=== PATIENT | male | born 1995 | race Caucasian/White ===

== ENCOUNTER 2017-11-20 09:16 | Emergency (ER) | payer OTHER ==
--- NOTE | 2017-11-20 10:33 | ED Physician Documentation ---
History of Present Illness - Stated complaint Stated Complaint: BACK PX - Chief complaint Chief Complaint: Back Pain - Additonal information Additional information: hx from pt 21 male [place] lifts boxes at work woke up with mid left back pain worse with moving no fever no recent surgery dental work no CP SOA cough no abd pain NV no dysuria hematuria incont no saddle anesthesia when he work up with his arm over his head he had L arm numbness for about 2 min now resolved Review of Systems Constitutional: denies: Fever, Chills Cardiac: denies: Chest pain / pressure Respiratory: denies: Dyspnea GI: denies: Abdominal Pain : denies: Dysuria, Frequency, Hematuria Musculoskeletal: reports: Back pain Neurologic: reports: Numbness (L arm not now). denies: Focal weakness Endocrine: denies: Easy bruising / bleeding Immunocompromised: denies: Immunocompromised PD PAST MEDICAL HISTORY - Present Medications Home Medications: Ambulatory Orders Medication Instructions Recorded Confirmed Cyclobenzaprine [Flexeril] 10 mg PO TID PRN #20 tablet 11/20/17 Ibuprofen [Motrin] 400 mg PO Q6H PRN #30 tablet 11/20/17 Lidocaine Patch 5% [Lidoderm Patch] 1 each TOP DAILY PRN #10 patch 11/20/17 - Allergies Allergies/Adverse Reactions: Allergies Allergy/AdvReac Type Severity Reaction Status Date / Time No Known Drug Allergies Allergy Verified 11/20/17 09:30 PD ED PE NORMAL - Vitals Vital signs reviewed: Yes - General General: Alert and oriented X 3 - Cardiac Cardiac: RRR - Respiratory Respiratory: No respiratory distress - Abdomen Abdomen: Soft, Non tender, Other (no pulsatile mass) - Back Back: Other (focal spine TTP redness warmth or swelling, soft tissue TTP midline and left to mid / lower T spine region with limited extension and rotation 2/2 pain) - Derm Derm: Normal color - Neuro Neuro: Alert and oriented X 3, 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, No motor deficit, No sensory deficit, Normal speech, Other (shoulder ABD shrug bicep trisep wrist ext maturity checker finger ABD thumbs up OK all 5/5, hip flex knee ext foot dorsi plantar and great toe ext 5/5, nl sensation, denies saddle anesthesia, neg SLR, no clonus) Eye Opening: Spontaneous Motor: Obeys Commands Verbal: Oriented GCS Score: 15 Results - Vitals Vitals: Vital Signs - 24 hr 11/20/17 09:27 Temperature 36.6 C Heart Rate 68 Respiratory 16 Rate Blood Pressure 141/72 H O2 Saturation 100 Oxygen O2 Source Room air PD MEDICAL DECISION MAKING - ED course ED course: exam c/w muscular back ain pt awoke with l arm numbness after sleeping with arm above head and it resolved within 2 min and would not be c/w T spine issues - Sepsis Event Vital Signs: Vital Signs - 24 hr 11/20/17 09:27 Temperature 36.6 C Heart Rate 68 Respiratory 16 Rate Blood Pressure 141/72 H O2 Saturation 100 Oxygen O2 Source Room air Departure - Departure Disposition: Home, Self Care Clinical Impression: Upper back strain Qualifiers: Encounter type: initial encounter Qualified Code(s): S29.012A - Strain of muscle and tendon of back wall of thorax, initial encounter Condition: Good Instructions: ED Neck Back Pain General Prescriptions: Cyclobenzaprine [Flexeril] 10 mg PO TID PRN #20 tablet PRN Reason: Spasms Ibuprofen [Motrin] 400 mg PO Q6H PRN #30 tablet PRN Reason: Pain Lidocaine Patch 5% [Lidoderm Patch] 1 each TOP DAILY PRN #10 patch PRN Reason: Pain Comments: The pain seems to be in the muscles of your back. Take the medications as prescribed take motrin with food Do not drive for 8 horus after taking the muscle relaxant Alternate ice and heat Off work today, no lifting for a week Forms: Activity restrictions
[2017-11-20] MEDS ORDERED: IBUPROFEN 400 MG TABLET PO STA (10:36)
[2017-11-20] MEDS ORDERED: LIDOCAINE PATCH 5% TOP PRN (10:36)
[2017-11-20] MEDS ORDERED: ACETAMINOPHEN 325 MG TABLET PO STA (10:36)
[2017-11-20 10:55] VITALS: BP 138/72
== END 2017-11-20 10:55 | disposition home or self-care (01) ==
LOC: ED 09:16
DX: S29.012A Strain of muscle and tendon of back wall of thorax, initial encounter (principal); X50.0XXA Overexertion from strenuous movement or load, initial encounter; Y93.89 Activity, other specified; Y92.89 Other specified places as the place of occurrence of the external cause
CPT/HCPCS: 99283; A9270

== ENCOUNTER 2018-02-06 21:50 | Emergency (ER) | payer OTHER ==
[2018-02-06 22:41] VITALS: BP 145/79
--- NOTE | 2018-02-06 23:00 | ED Physician Documentation ---
PD HPI MALE - Stated complaint Stated Complaint: MALE - Chief complaint Chief Complaint: Abd Pain - History obtained from History obtained from: Patient - History of Present Illness Timing - onset: How many days ago (2-3) Timing - duration: Days Timing - details: Gradual onset, Waxing and waning Associated symptoms: Testiclar pain, Scrotal swelling Recently seen: Not recently seen - Additional information Additional information: c/o 2-3 days of right testicular pain. denies injury. notes mild swelling. He has had large swelling of left testicle for 8 months but has not seen a doctor for this. He has no pain c/o of left testicle. Review of Systems Constitutional: denies: Fever : reports: Testicular pain. denies: Dysuria, Frequency, Discharge PD PAST MEDICAL HISTORY - Past Medical History Past Medical History: No - Past Surgical History Past Surgical History: No - Present Medications Home Medications: Ambulatory Orders Medication Instructions Recorded Confirmed No Known Home Medications 02/06/18 02/06/18 - Allergies Allergies/Adverse Reactions: Allergies Allergy/AdvReac Type Severity Reaction Status Date / Time No Known Drug Allergies Allergy Verified 02/06/18 22:00 - Social History Does the pt smoke?: No Smoking Status: Never smoker Does the pt drink ETOH?: No Does the pt have substance abuse?: No - Immunizations Immunizations are current?: Yes - POLST Patient has POLST: No PD ED PE NORMAL - Vitals Vital signs reviewed: Yes - General General: Alert and oriented X 3, No acute distress, Well developed/nourished - Derm Derm: Normal color, No rash PD ED PE EXPANDED - Male Male : Circumcised, Testes descended crystal, Normal lie/cremastaric, Tenderness (right testicle; no obvious swelling on right), Other (large swelling of left hemiscrotum; nontender on left). No: Skin lesions, Discharge Results - Vitals Vitals: Vital Signs - 24 hr 02/06/18 02/06/18 21:57 22:36 Temperature 36.6 C Heart Rate 81 85 Respiratory 18 18 Rate Blood Pressure 146/79 H 145/79 H O2 Saturation 98 95 Oxygen O2 Source Room air - Rads (name of study) testicular US (bilateral) Radiology: Prelim report reviewed, See rad report Departure - Departure Disposition: 01 Home, Self Care Clinical Impression: Hydrocele Condition: Good Instructions: ED Hydrocele Type Not Specified Follow-Up: DAVID Villa [Provider Group] (Call in the morning to arrange for next available appointment; you might need to see a urologist for this problem) Forms: Activity restrictions Discharge Date/Time: 02/07/18 01:24
--- NOTE | 2018-02-07 00:36 | Ultrasound Report ---
Reason: left testicular swelling, right testicular pain Procedure Date: 02/07/2018 Accession Number: [id number] / [id number] Procedure: US - Testicle w/Doppler CPT Code: FULL RESULT: EXAM: SCROTAL ULTRASOUND EXAM DATE: 02/06/2018 11:43 PM. CLINICAL HISTORY: Left-sided testicular swelling. Right-sided testicular pain. COMPARISON: None. TECHNIQUE: Real-time scanning was performed with static images obtained. Color-flow images were utilized. FINDINGS: Right: Testis: 4.9 x 2.6 x 3.7 cm. Normal size and echotexture. No mass, calcification, or abnormal blood flow. Epididymis: 1.1 x 0.9 x 1.1 cm. Normal size and echotexture. No mass or abnormal blood flow. Hydrocele: Small Varicocele: None. Left: Testis: 4.9 x 2.7 x 3.3 cm. Normal size and echotexture. No mass, calcification, or abnormal blood flow. Epididymis: 1.1 x 0.7 x 1.3 cm. Normal size and echotexture. No mass or abnormal blood flow. Hydrocele: Large simple appearing Varicocele: None. IMPRESSION: 1. There is no evidence of testicular torsion. 2. Large left-sided hydrocele. RADIA
== END 2018-02-07 01:24 | disposition home or self-care (01) ==
LOC: ED 21:50
DX: N43.3 Hydrocele, unspecified (principal)
CPT/HCPCS: 76870; 93975; 99283

== ENCOUNTER 2018-03-08 13:59 | Emergency (ER) | payer OTHER ==
[2018-03-08 14:04] VITALS: BP 130/63
--- NOTE | 2018-03-08 14:50 | ED Physician Documentation ---
History of Present Illness - Stated complaint Stated Complaint: COLD SX - Chief complaint Chief Complaint: Resp - Additonal information Additional information: hx from pt 22 male to ED with 3 days of cough congestion sneezing RODRIGUEZ myalgias no fever fears the flu room mate with same Review of Systems Constitutional: denies: Fever, Chills Ears: denies: Ear pain Throat: reports: Sore throat Cardiac: denies: Chest pain / pressure Respiratory: reports: Cough. denies: Dyspnea GI: denies: Vomiting, Diarrhea Musculoskeletal: denies: Extremity swelling PD PAST MEDICAL HISTORY - Past Surgical History Past Surgical History: No - Present Medications Home Medications: Ambulatory Orders Medication Instructions Recorded Confirmed Benzonatate [Tessalon Perle] 100 mg PO TID PRN #20 capsule 03/08/18 Dextromethorphan/Benzocaine 1 each PO Q4H PRN #20 lozenge 03/08/18 [Cepacol Sorethroat-Cough Maliha] guaiFENesin/DEXTROMETHORPHAN 10 ml PO Q6H PRN #120 ml 03/08/18 [Robitussin Dm] - Allergies Allergies/Adverse Reactions: Allergies Allergy/AdvReac Type Severity Reaction Status Date / Time No Known Drug Allergies Allergy Verified 03/08/18 14:04 - Social History Does the pt smoke?: No Smoking Status: Never smoker Does the pt drink ETOH?: No Does the pt have substance abuse?: No - Immunizations Immunizations are current?: Yes - POLST Patient has POLST: No PD ED PE NORMAL - Vitals Vital signs reviewed: Yes - General General: Alert and oriented X 3 - HEENT HEENT: PERRL - Neck Neck: Supple, no meningeal sign - Cardiac Cardiac: RRR - Respiratory Respiratory: No respiratory distress, Clear bilaterally - Abdomen Abdomen: Non tender - Derm Derm: Normal color - Extremities Extremities: No tenderness to palpate, Normal ROM s pain, No calf tenderness / cord - Neuro Neuro: Alert and oriented X 3 Results - Vitals Vitals: Vital Signs - 24 hr 03/08/18 14:02 Temperature 36.2 C L Heart Rate 65 Respiratory 18 Rate Blood Pressure 130/63 O2 Saturation 97 Oxygen O2 Source Room air - Labs Labs: Laboratory Tests 03/08/18 03/08/18 14:10 14:10 Influenza A (Rapid) Negative Influenza B (Rapid) Negative Group A Strep Rapid Negative - Rads (name of study) CXR Radiology: See rad report (NACPD) Departure - Departure Disposition: 01 Home, Self Care Clinical Impression: Viral URI with cough Condition: Good Instructions: ED Viral Syndrome Prescriptions: Benzonatate [Tessalon Perle] 100 mg PO TID PRN #20 capsule PRN Reason: Cough Dextromethorphan/Benzocaine [Cepacol Sorethroat-Cough Maliha] 1 each PO Q4H PRN #20 lozenge PRN Reason: sore throat guaiFENesin/DEXTROMETHORPHAN [Robitussin Dm] 10 ml PO Q6H PRN #120 ml PRN Reason: Cough Comments: The strep and flu swabs were negative and the xray did not show pneumonia. You likely have a viral syndrome That does not make you less ill, but means antibiotics will not help I have prescribed medications to ease your symptoms And a note for work so you can rest and recover Forms: Activity restrictions
--- NOTE | 2018-03-08 15:16 | XRAY Report ---
Reason: soa Procedure Date: 03/08/2018 Accession Number: [id number] / [id number] Procedure: XR - Chest 2 View X-Ray CPT Code: 58256 FULL RESULT: EXAM: CHEST RADIOGRAPHY EXAM DATE: 03/08/2018 03:10 PM. CLINICAL HISTORY: Cough. Shortness of breath. COMPARISON: None. TECHNIQUE: 2 views. FINDINGS: Lungs/Pleura: No focal opacities evident. No pleural effusion. No pneumothorax. Normal volumes. Mediastinum: Heart and mediastinal contours are unremarkable. Other: None. IMPRESSION: Normal 2-view chest radiography. RADIA
== END 2018-03-08 15:31 | disposition home or self-care (01) ==
LOC: ED 13:59
DX: J06.9 Acute upper respiratory infection, unspecified (principal); B97.89 Other viral agents as the cause of diseases classified elsewhere
CPT/HCPCS: 71046; 87070; 87275; 87276; 87430; 99283

== ENCOUNTER 2018-08-13 10:58 | Emergency (ER) | payer OTHER ==
--- NOTE | 2018-08-13 12:54 | ED Physician Documentation ---
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 He lives in the [facility]. For several weeks now he has had intermittent trouble sleeping. He feels like he will go to bed and sleep for a long time but he will be awake again and its only been 5 minutes. He tosses and turns all night. He thinks it might be related to stress, he does note that it happens on work nights, and does not happen on the weekends where he does not work. For the last few days after a trip in the [place] he is had intermittent diarrhea with some cramps but no nausea or vomiting. No bloody diarrhea. No recent antibiotics.) Review of Systems Ten Systems: 10 systems reviewed and negative Constitutional: denies: Fever, Chills Cardiac: denies: Chest pain / pressure, Palpitations Respiratory: denies: Dyspnea, Cough GI: denies: Nausea, Vomiting, Hematemesis, Bloody / black stool : denies: Dysuria, Frequency PD PAST MEDICAL HISTORY - Past Medical History Past Medical History: No Cardiovascular: None Respiratory: None Neuro: None Endocrine/Autoimmune: None GI: None : None HEENT: None Psych: None Musculoskeletal: None Derm: None - Past Surgical History Past Surgical History: No - Present Medications Home Medications: Ambulatory Orders Medication Instructions Recorded Confirmed Benzonatate [Tessalon Perle] 100 mg PO TID PRN #20 capsule 03/08/18 Dextromethorphan/Benzocaine 1 each PO Q4H PRN #20 lozenge 03/08/18 [Cepacol Sorethroat-Cough Maliha] guaiFENesin/DEXTROMETHORPHAN 10 ml PO Q6H PRN #120 ml 03/08/18 [Robitussin Dm] Stool Studies 1 unit TD ONCE #1 08/13/18 - Allergies Allergies/Adverse Reactions: Allergies Allergy/AdvReac Type Severity Reaction Status Date / Time No Known Drug Allergies Allergy Verified 08/13/18 11:05 - Social History Does the pt smoke?: No Smoking Status: Never smoker Does the pt drink ETOH?: No Does the pt have substance abuse?: No - Immunizations Immunizations are current?: Yes - POLST Patient has POLST: No PD ED PE NORMAL - Vitals Vital signs reviewed: Yes - General General: Alert and oriented X 3, No acute distress - HEENT HEENT: PERRL, EOMI - Neck Neck: Supple, no meningeal sign, No bony TTP - Cardiac Cardiac: RRR, No murmur - Respiratory Respiratory: No respiratory distress, Clear bilaterally - Abdomen Abdomen: Normal bowel sounds, Soft, Non tender - Back Back: No CVA TTP, No spinal TTP - Derm Derm: Normal color, Warm and dry - Extremities Extremities: No edema, No calf tenderness / cord - Neuro Neuro: Alert and oriented X 3, Normal speech Results - Vitals Vitals: Vital Signs - 24 hr 08/13/18 08/13/18 11:02 12:55 Temperature 36.6 C Heart Rate 77 64 Respiratory 14 18 Rate Blood Pressure 147/61 H 121/77 O2 Saturation 97 98 Oxygen O2 Source Room air - Labs Labs: Laboratory Tests 08/13/18 08/13/18 13:17 13:17 WBC 4.7 L RBC 4.76 Hgb 13.2 L Hct 39.5 L MCV 82.9 MCH 27.8 MCHC 33.5 RDW 13.7 Plt Count 245 MPV 8.1 Neut # (Auto) 2.3 Lymph # (Auto) 1.8 [place] # (Auto) 0.5 Eos # (Auto) 0.1 Baso # (Auto) 0.0 Absolute Nucleated RBC 0.00 Nucleated RBC % 0.0 Sodium 140 Potassium 3.8 Chloride 105 Carbon Dioxide 25 Anion Gap 10.0 BUN 20 Creatinine 1.0 Estimated GFR (MDRD) 93 Glucose 97 Calcium 9.1 Total Bilirubin 0.7 AST 22 ALT 17 Alkaline Phosphatase 53 Total Protein 6.8 Albumin 4.2 Globulin 2.6 Albumin/Globulin Ratio 1.6 Lipase 32 PD MEDICAL DECISION MAKING - ED course ED course: 22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 As far as that complain goes there is no evidence of emergency medical condition and I discussed with him that I would defer work-up and treatment of [place] As far as the diarrhea goes his basic lab work is unremarkable. He was unable to give a bowel movement here so we will send him home with collection materials and an order for stool studies. Departure - Departure Disposition: Home, Self Care Clinical Impression: Problems related to lack of adequate sleep Diarrhea Qualifiers: Diarrhea type: presumed infectious Qualified Code(s): R19.7 - Diarrhea, unspecified Condition: Good Record reviewed to determine appropriate education?: Yes Instructions: ED Diarrhea Viral Prescriptions: Stool Studies 1 unit TD ONCE #1 Comments: Return for new or worsening symptoms. Bring a stool sample back to the lab when you are able for stool studies. Follow-up with your doctor regarding her sleeping issues. Forms: Activity restrictions
[2018-08-13 13:52] LABS: BASOPHILS % (AUTO) 0.3 %; EOSINOPHILS # (AUTO) 0.1 10^3/uL (0.0-0.7); EOSINOPHILS % (AUTO) 1.4 %; HGB - HEMOGLOBIN 13.2 g/dL (14.0-18.0); LYMPHOCYTES # (AUTO) 1.8 10^3/uL (1.5-3.5); LYMPHOCYTES % (AUTO) 38.7 %; MEAN CORPUSCULAR HEMOGLOBIN 27.8 pg (27.0-31.0); MEAN CORPUSCULAR HGB CONC 33.5 g/dL (32.0-36.0); MEAN CORPUSCULAR VOLUME 82.9 fL (80.0-94.0); MEAN PLATELET VOLUME 8.1 fL (7.4-11.4); MONOCYTES # (AUTO) 0.5 10^3/uL (0.0-1.0); MONOCYTES % (AUTO) 10.8 %; NEUTROPHILS # (AUTO) 2.3 10^3/uL (1.5-6.6); NEUTROPHILS % (AUTO) 48.8 %; PLT - PLATELET COUNT 245 10^3/uL (130-450); RED BLOOD COUNT 4.76 10^6/uL (4.70-6.10); RED CELL DISTRIBUTION WIDTH 13.7 % (12.0-15.0); WHITE BLOOD COUNT 4.7 x10^3/uL (4.8-10.8)
[2018-08-13 13:58] LABS: ALBUMIN 4.2 g/dL (3.2-5.5); ALBUMIN/GLOBULIN RATIO 1.6 (1.0-2.2); BILIRUBIN,TOTAL 0.7 mg/dL (0.2-1.0); CALCIUM 9.1 mg/dL (8.5-10.3); TOTAL PROTEIN 6.8 g/dL (6.7-8.2)
[2018-08-13 14:37] VITALS: BP 154/79
== END 2018-08-13 14:37 | disposition home or self-care (01) ==
LOC: ED 10:58
DX: R19.7 Diarrhea, unspecified (principal); Z72.820 Sleep deprivation
CPT/HCPCS: 36415; 80053; 83690; 84443; 85025; 87015; 87045; 87046; 87272; 87329; 99283

== ENCOUNTER 2018-08-14 08:00 | Outpatient (CLI) | payer OTHER | END 2018-08-14 23:59 | disposition home or self-care (01) | LOC: LAB 08:00 | PROVIDERS: ATTEND Emergency Medicine | DX: R19.7 Diarrhea, unspecified (principal) | CPT/HCPCS: 81599; 87045; 87046; 87329; 87493 ==

== ENCOUNTER 2018-10-24 13:42 | Emergency (ER) | payer OTHER ==
[2018-10-24 13:49] VITALS: BP 132/77
--- NOTE | 2018-10-24 14:30 | ED Physician Documentation ---
PD HPI MALE - Stated complaint Stated Complaint: MALE - Chief complaint Chief Complaint: General - History obtained from History obtained from: Patient - History of Present Illness Timing - onset: How many months ago (16) Timing - duration: Months (16) Timing - details: Gradual onset, Still present Associated symptoms: Scrotal swelling Similar symptoms before: Diagnosis (hydrocele) Recently seen: Clinic - Additional information Additional information: 22-year-old male was diagnosed with a hydrocele by ultrasound here in February 2018. He is return to the emergency department with the request for evaluation for treatment. He indicates that he went to medical to get follow-up and they told him to come back here to get follow-up. Review of Systems Constitutional: denies: Fever Eyes: denies: Decreased vision Ears: denies: Ear pain Nose: denies: Congestion Respiratory: denies: Cough GI: denies: Nausea, Vomiting : denies: Dysuria, Frequency PD PAST MEDICAL HISTORY - Past Medical History Cardiovascular: None Respiratory: None Neuro: None Endocrine/Autoimmune: None GI: None : None HEENT: None Psych: None Musculoskeletal: None Derm: None - Past Surgical History Past Surgical History: No - Present Medications Home Medications: Ambulatory Orders Medication Instructions Recorded Confirmed Benzonatate [Tessalon Perle] 100 mg PO TID PRN #20 capsule 03/08/18 Dextromethorphan/Benzocaine 1 each PO Q4H PRN #20 lozenge 03/08/18 [Cepacol Sorethroat-Cough Maliha] guaiFENesin/DEXTROMETHORPHAN 10 ml PO Q6H PRN #120 ml 03/08/18 [Robitussin Dm] Stool Studies 1 unit TD ONCE #1 08/13/18 - Allergies Allergies/Adverse Reactions: Allergies Allergy/AdvReac Type Severity Reaction Status Date / Time No Known Drug Allergies Allergy Verified 08/13/18 11:05 - Social History Does the pt smoke?: No Smoking Status: Never smoker Does the pt drink ETOH?: No Does the pt have substance abuse?: No - Immunizations Immunizations are current?: Yes - POLST Patient has POLST: No PD ED PE NORMAL - Vitals Vital signs reviewed: Yes (hypertensive mild ) - General General: Alert and oriented X 3, No acute distress, Well developed/nourished - HEENT HEENT: Atraumatic, PERRL, EOMI - Respiratory Respiratory: No respiratory distress - Male Male : Other (There is smooth enlargement of the left testicle. It is non- tender and there is no fluctuance. The right testicle is normal and not tender. ) - Back Back: No CVA TTP, No spinal TTP - Derm Derm: Normal color, Warm and dry, No rash - Extremities Extremities: No deformity, No edema - Neuro Neuro: Alert and oriented X 3, charge coordinator 2-12 intact, No motor deficit, No sensory deficit, Normal speech Eye Opening: Spontaneous Motor: Obeys Commands Verbal: Oriented GCS Score: 15 - Psych Psych: Normal mood, Normal affect Results - Vitals Vitals: Vital Signs - 24 hr 10/24/18 10/24/18 13:44 14:38 Temperature 36.7 C 36.7 C Heart Rate 58 L 60 Respiratory 14 20 Rate Blood Pressure 132/77 H 132/77 H O2 Saturation 98 99 Oxygen O2 Source Room air PD MEDICAL DECISION MAKING - ED course Complexity details: considered differential, d/w patient ED course: 22-year-old male with a history of left testicular hydrocele has not had increase her specific symptoms associated with this but he is ready for his follow-up. He was seen here 8 months ago with diagnosis made on ultrasound and he has been unable to obtain a urologist in follow-up. I have given the patient several names of urologist and he will need to seek a referral from his primary care at [facility]. Departure - Departure Disposition: 01 Home, Self Care Clinical Impression: Hydrocele Condition: Stable Instructions: ED Hydrocele Type Not Specified Follow-Up: Guanaco Sofia MD [Physician No Access] - Vince Palma DO [Physician No Access] - Eriberto Montes MD [Provider Admit Priv/Credential] - Sim Leblanc MD [Physician No Access] - Comments: The swelling in the left testicle is a hydrocele and this requires a visit to a urologist. I have provided several local urologist and you will need a referral from your primary care provider for "evaluation of a hydrocele" Discharge Date/Time: 10/24/18 14:38
== END 2018-10-24 14:38 | disposition home or self-care (01) ==
LOC: ED 13:42
DX: N43.3 Hydrocele, unspecified (principal)
CPT/HCPCS: 99283